=== PATIENT | male | born 1955 | race Caucasian/White ===

== ENCOUNTER 2020-09-15 09:33 | Emergency (ER) | payer OTHER ==
[~2020-09-15] VITALS: Ht 162.6 cm; Wt 81.2 kg
[2020-09-15 10:01] VITALS: BP 174/99
[2020-09-15] MEDS ORDERED: CETI1TAB7 PO (10:33)
[2020-09-15] MEDS ORDERED: CEPH500C PO (10:33)
[2020-09-15] MEDS ORDERED: CIPR7.5D EACH EAR (10:33)
--- NOTE | 2020-09-15 10:36 | PHYS DOC ---
Past History Past Medical History: Other Additional Past Medical Histor: hernias Past Surgical History: Appendectomy, Other Additional Past Surgical Histo: hernia repair Alcohol Use: None Adult General Chief Complaint Chief Complaint: EARACHE/EAR PAIN HPI HPI Patient is 65-year-old male who presents to the emergency room complaining of left ear pressure and a rash to his chin and the back of his neck. Patient states he first got the rash a year ago and it has been intermittent since then he has been using a cream his primary care doctor gave him which helps but does not resolve the rash. He noticed severe ear pressure when he woke up this morning. For the last couple of days he has felt like the ear is full of water and has had some pain in the ear. He also has been having some eye drainage. He denies any fever, chills, sweats, decreased hearing, decreased vision, cough, shortness of breath, change of taste, change of smell. Review of Systems Review of Systems Complete ROS is negative unless otherwise documented in HPI Allergies Allergies Allergies Coded Allergies Type Severity Reaction Last Updated Verified No Known Drug Allergies 09/15/20 No Physical Exam Physical Exam General: Awake, alert, NAD. Well Nourished, well hydrated. Cooperative HEENT: Atraumatic, EOMI, PERRL, airway patent, moist oral mucosa, left TM with effusion, left canal with erythema and swelling consistent with otitis externa Neck: Supple, trachea midline Respiratory: CTA bilaterally, normal effort, no wheezing/crackles CV: RRR, no murmur, cap refill <2 GI: Soft, nondistended, nontender, no masses MSK: No obvious deformities Skin: Warm, dry, intact face: 2 small crusted circular lesions to the chin with hair loss. Posterior neck 2 small areas of crusted over lesions Neuro: A&O x3, speech NL, sensory and motor grossly intact, no focal deficits Psych: Normal affect, normal mood, not suicidal or homicidal Current Patient Data Vital Signs Vital Signs Date Time Temp Pulse Resp B/P (MAP) Pulse Ox O2 Delivery O2 Flow Rate FiO2 09/15/20 10:01 97.9 95 20 174/99 (124) 95 EKG EKG [] Radiology/Procedures Radiology/Procedures [] Heart Score Risk Factors: Risk Factors: DM, Current or recent (<one month) smoker, HTN, HLP, family history of CAD, obesity. Risk Scores: Risk Factors: DM, Current or recent (<one month) smoker, HTN, HLP, family history of CAD, obesity. Course & Med Decision Making Course & Med Decision Making Pertinent Labs and Imaging studies reviewed. (See chart for details) Patient is a 65-year-old male who presents to the emergency room complaining of ear pain and rash. Rash is consistent with impetigo. It also appears the patient has an otitis media with an otitis externa. We will place him on cephalexin and Ciprodex. We will do Zyrtec to help with the pressure in his ear. Patient's test results and vitals while in the ED were fully reviewed and discussed with the patient. Patient is stable and at this time does not need admission to the hospital. We have discussed strict return precautions and the importance of following up with their Primary Care Physician. Patient stated understanding and was given an opportunity to ask any questions. Patient is in agreement with plan. Dragon Disclaimer Dragon Disclaimer This electronic medical record was generated, in whole or in part, using a voice recognition dictation system. Departure Departure: Impression: Primary Impression: Otitis media Additional Impression: Impetigo Disposition: HOME SELF CARE/HOMELESS Condition: STABLE Referrals: LASHON PIKE MD (PCP) Patient Instructions: Impetigo, Otitis Media, Adult Scripts Ciprofloxacin Hcl/Dexameth (CIPRODEX OTIC SUSPENSION) 7.5 Ml Drops.susp 4 DROP EACH EAR BID for otitis externa, #7.5 ML Prov: LIN ALVAREZ MD 09/15/20 Cetirizine Hcl/Pseudoephedrine (ZYRTEC-D TABLET) 1 Each Tab.er.12h 1 TAB PO BID for ear pain, #20 TAB Prov: LIN ALVAREZ MD 09/15/20 Cephalexin (CEPHALEXIN) 500 Mg Capsule 1 CAP PO TID for infx, #30 CAP Prov: LIN ALVAREZ MD 09/15/20 Problem Qualifiers LIN ALVAREZ MD Sep 15, 2020 10:36
== END 2020-09-15 10:52 | disposition home or self-care (01) ==
LOC: ER 09:33
DX: H66.92 Otitis media, unspecified, left ear (principal); L01.00 Impetigo, unspecified
CPT/HCPCS: 99283

== ENCOUNTER 2021-05-27 12:31 | Emergency (ER) | payer OTHER ==
[~2021-05-27] VITALS: Ht 162.6 cm; Wt 81.2 kg
[~2021-05-27 12:31] MED LIST: CEPH500C PO; CETI1TAB7 PO; CIPR7.5D EACH EAR
--- NOTE | 2021-05-27 13:28 | PHYS DOC ---
Past History Past Medical History: Other Additional Past Medical Histor: hernias Past Surgical History: Appendectomy, Other Additional Past Surgical Histo: hernia repair Alcohol Use: None General Adult EDM: Chief Complaint: SHORTNESS OF BREATH HPI: HPI: 65-year-old male presents with shortness of breath. He has been having increased shortness of breath and cough with phlegm for the last 2 days. Denies chest pain or diaphoresis. Patient has a history of undiagnosed skin disorder and no other significant medical findings. He has been a smoker for many years. He quit for 15 years. No diagnosis of COPD. He is not vaccinated against COVID-19. He denies fever or chills. He has no other complaints this time. Review of Systems: Review of Systems: Constitutional: Denies fever or chills Eyes: Denies change in visual acuity HENT: Denies nasal congestion or sore throat Respiratory: Denies cough or shortness of breath Cardiovascular: Denies chest pain or edema GI: Denies abdominal pain, nausea, vomiting, bloody stools or diarrhea : Denies dysuria Musculoskeletal: Denies back pain or joint pain Integument: Denies rash Neurologic: Denies headache, focal weakness or sensory changes Endocrine: Denies polyuria or polydipsia Lymphatic: Denies swollen glands Psychiatric: Denies depression or anxiety Allergies: Allergies: Allergies Coded Allergies Type Severity Reaction Last Updated Verified No Known Drug Allergies 09/15/20 No Physical Exam: PE: Constitutional: Well developed, well nourished, no acute distress, non-toxic appearance. [] HENT: Normocephalic, atraumatic, bilateral external ears normal, oropharynx moist, no oral exudates, nose normal. [] Eyes: PERRLA, EOMI, conjunctiva normal, no discharge. [] Neck: Normal range of motion, no tenderness, supple, no stridor. [] Cardiovascular:Heart rate regular rhythm, no murmur [] Lungs & Thorax: Bilateral breath sounds clear to auscultation [] Abdomen: Bowel sounds normal, soft, no tenderness, no masses, no pulsatile masses. [] Skin: Warm, dry, no erythema, no rash. [] Back: No tenderness, no CVA tenderness. [] Extremities: No tenderness, no cyanosis, no clubbing, ROM intact, no edema. [] Neurologic: Alert and oriented X 3, normal motor function, normal sensory function, no focal deficits noted. [] Psychologic: Affect normal, judgement normal, mood normal. [] Current Patient Data: Vital Signs: Vital Signs Date Time Temp Pulse Resp B/P (MAP) Pulse Ox O2 Delivery O2 Flow Rate FiO2 05/27/21 12:36 98.4 18 18 165/94 (117) 96 Room Air EKG: EKG: Sinus rhythm, rate 77, normal axis, no ST elevation or depression. [] Radiology/Procedures: Radiology/Procedures: [] Impressions: Study: XR CHEST 1V Indication: Shortness of breath. Comparison: 08/25/2014 Findings: No confluent airspace infiltrate. No pleural effusion or pneumothorax. Cardiomediastinal silhouette and geri. Chronic ossific fragment adjacent to the right humeral head on a background of arthrosis to fully characterized on this exam. Impression: No acute radiographic abnormality of the chest. Electronically signed by: BRYSON MAXWELL MD (05/27/2021 1:57 PM) [facility] DICTATED AND SIGNED BY: BRYSON MAXWELL MD DATE: 05/27/21 1355 CC: SAIRA NICOLE DO; LASHON PIKE MD ~MTH0 0 Heart Score: C/O Chest Pain: N/A Risk Factors: Risk Factors: DM, Current or recent (<one month) smoker, HTN, HLP, family history of CAD, obesity. Risk Scores: Score 0 - 3: 2.5% MACE over next 6 weeks - Discharge Home Score 4 - 6: 20.3% MACE over next 6 weeks - Admit for Clinical Observation Score 7 - 10: 72.7% MACE over next 6 weeks - Early Invasive Strategies Course & Med Decision Making: Course & Med Decision Making Pertinent Labs and Imaging studies reviewed. (See chart for details) The patient's EKG is unremarkable. His chest x-ray is negative for acute findings. This is likely a COPD exacerbation though the patient does not have an official diagnosis. I will treat him with 125 Solu-Medrol in the ER and 3 more days of prednisone at home. We did test him for COVID-19 results pending. He is stable for discharge at this time. [] Dragon Disclaimer: Dragon Disclaimer: This electronic medical record was generated, in whole or in part, using a voice recognition dictation system. Departure Departure: Impression: Primary Impression: COPD exacerbation Disposition: HOME / SELF CARE / HOMELESS Condition: STABLE Referrals: LASHON PIKE MD (PCP) Patient Instructions: Chronic Obstructive Pulmonary Disease Exacerbation, [id number] Scripts Prednisone (PREDNISONE) 50 Mg Tablet 1 TAB PO DAILY for COPD for 3 Days, #3 TAB Prov: SAIRA NICOLE DO 05/27/21 SAIRA NICOLE DO May 27, 2021 13:28
--- NOTE | 2021-05-27 14:00 | RAD ---
Study: XR CHEST 1V Indication: Shortness of breath. Comparison: 08/25/2014 Findings: No confluent airspace infiltrate. No pleural effusion or pneumothorax. Cardiomediastinal silhouette a nd geri. Chronic ossific fragment adjacent to the right humeral head on a background of arthrosis to fully luciana racterized on this exam. Impression: No acute radiographic abnormality of the chest. Electronically signed by: BRYSON MAXWELL MD (05/27/2021 1:57 PM) [facility]
[2021-05-27 14:05] LABS: BASO # 0.1 x10^3/uL (0.0-0.2); BASO % 1 % (0-3); EOS # 0.2 x10^3/uL (0.0-0.7); EOS % 2 % (0-3); HEMATOCRIT 42.1 % (39.0-53.0); HEMOGLOBIN 14.4 g/dL (13.0-17.5); LYMPH # 2.1 x10^3/uL (1.0-4.8); LYMPH % 16 % (24-48); MEAN CORPUSCULAR HEMOGLOBIN 31 pg (25-35); MEAN CORPUSCULAR HGB CONC 34 g/dL (31-37); MEAN CORPUSCULAR VOLUME 91 fL (79-100); MONO # 0.9 x10^3/uL (0.0-1.1); MONO % 7 % (0-9); NEUT # 9.6 x10^3uL (1.8-7.7); NEUT % 74 % (31-73); PLATELET COUNT 330 x10^3/uL (140-400); RED BLOOD COUNT 4.61 x10^6/uL (4.30-5.70); RED CELL DISTRIBUTION WIDTH 13.1 % (11.5-14.5); WHITE BLOOD COUNT 12.9 x10^3/uL (4.0-11.0)
[2021-05-27] MEDS ORDERED: PRED50TA PO (14:07)
[2021-05-27] MEDS ORDERED: methylPREDNISolone SOD SUCC PF 125 MG/2 ML VIAL. IV ONE (14:15)
[2021-05-27 14:22] VITALS: BP 133/78
[2021-05-27 14:27] LABS: POTASSIUM ISTAT 3.6 mmol/L (3.5-5.0)
[2021-05-27 14:28] LABS: HEMOGLOBIN ISTAT 14.6 gm/dL
[2021-05-27 15:27] LABS: ALBUMIN 3.7 g/dL (3.4-5.0); TOTAL BILIRUBIN 0.7 mg/dL (0.2-1.0); TOTAL PROTEIN 8.3 g/dL (6.4-8.2)
[2021-05-27 15:58] LABS: DIRECT BILIRUBIN 0.2 mg/dL (0.0-0.2)
--- NOTE | 2021-05-27 20:26 | EKG ---
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
== END 2021-05-27 14:33 | disposition home or self-care (01) ==
LOC: ER 12:31
DX: J44.1 Chronic obstructive pulmonary disease with (acute) exacerbation (principal)
CPT/HCPCS: 36415; 71045; 80047; 80076; 84484; 85025; 93005; 96374; 99285; J2930

== ENCOUNTER 2021-07-14 06:16 | Emergency (ER) | payer OTHER ==
[~2021-07-14] VITALS: Ht 162.6 cm; Wt 83.3 kg
[~2021-07-14 06:16] MED LIST changes: +PRED50TA PO
--- NOTE | 2021-07-14 06:27 | PHYS DOC ---
Past History Past Medical History: Other Additional Past Medical Histor: hernias Past Surgical History: Appendectomy, Other Additional Past Surgical Histo: hernia repair Smoking: Cigarettes Alcohol Use: None Drug Use: None Adult General HPI HPI Patient is a 66-year-old male presenting via EMS for nausea and vomit. This is an acute issue. States he has had generalized URI symptoms for several days and started developing nausea yesterday evening. On waking this morning, patient started feeling more nauseous than usual having several episodes of nonbloody nonbilious emesis. He has had nonspecific chills and has been diaphoretic since onset. States turning head, changes of position and p.o. intake makes worse, nothing known makes better. Timing of symptoms has been constant since waking up this morning prompting him to call EMS for transport. On arrival, patient was found to be hemodynamically stable with an unremarkable EKG and abpyb-tl-yemb glucose. Patient was given 4 mg IV Zofran and transported to our facility. On arrival, patient remains diaphoretic with ongoing nausea and had x1 episode of nonbloody nonbilious emesis on arrival. Denies having any known/diagnosed medical conditions and takes no medications on a daily basis. Smokes cigarettes daily but otherwise no alcohol or illicit drug use. He has been at baseline health recently with no major changes or exposures. He admits he is unvaccinated against COVID-19 Review of Systems Review of Systems Fourteen body systems of review of systems have been reviewed. See HPI for pertinent positives and negative responses, other pool all other systems are negative, non-pertinent or non-contributory Allergies Allergies Allergies Coded Allergies Type Severity Reaction Last Updated Verified No Known Drug Allergies 09/15/20 No Physical Exam Physical Exam Constitutional: Appears older than stated age, disheveled and unhygienic in appearance, no acute distress, non-toxic appearance. HENT: Normocephalic, atraumatic, bilateral external ears normal, bilateral tympanic membranes noninfectious without any concerning findings, oropharynx dry, no oral exudates, external nose normal with anterior rhinorrhea present, there is postnasal drip with bilateral boggy nasal turbinates. Forehead is diaphoretic Eyes: PERRLA, EOMI, conjunctiva normal, no discharge. Neck: Normal range of motion, no tenderness, supple, no stridor. Cardiovascular: Heart rate regular, sinus rhythm, no murmurs rubs or gallops Lungs & Thorax: Bilateral breath sounds clear to auscultation Abdomen: Bowel sounds normal, soft, no tenderness, no masses, no pulsatile masses. Nonsurgical abdomen, no peritoneal signs Skin: Warm, dry, no erythema, no rash. Back: No tenderness, no CVA tenderness. Extremities: No tenderness, no cyanosis, no clubbing, ROM intact, no edema. Neurologic: Alert and oriented X 3, cranial nerves II through XII intact, normal motor & sensory function, no focal deficits noted. Psychologic: Anxious affect and mood Current Patient Data Vital Signs Vital Signs Date Time Temp Pulse Resp B/P (MAP) Pulse Ox O2 Delivery O2 Flow Rate FiO2 07/14/21 06:40 98.5 80 24 146/81 (102) 95 Room Air Vital Signs Date Time Temp Pulse Resp B/P (MAP) Pulse Ox O2 Delivery O2 Flow Rate FiO2 07/14/21 06:40 98.5 80 24 146/81 (102) 95 Room Air Lab Results Laboratory Tests Test 07/14/21 06:25 White Blood Count 13.9 x10^3/uL Red Blood Count 4.50 x10^6/uL Hemoglobin 14.0 g/dL Hematocrit 41.9 % Mean Corpuscular Volume 93 fL Mean Corpuscular Hemoglobin 31 pg Mean Corpuscular Hemoglobin Concent 34 g/dL Red Cell Distribution Width 13.3 % Platelet Count 333 x10^3/uL Neutrophils (%) (Auto) 45 % Lymphocytes (%) (Auto) 42 % Monocytes (%) (Auto) 9 % Eosinophils (%) (Auto) 3 % Basophils (%) (Auto) 1 % Neutrophils # (Auto) 6.3 x10^3uL Lymphocytes # (Auto) 5.9 x10^3/uL Monocytes # (Auto) 1.2 x10^3/uL Eosinophils # (Auto) 0.4 x10^3/uL Basophils # (Auto) 0.1 x10^3/uL Sodium Level 141 mmol/L Potassium Level 3.9 mmol/L Chloride Level 104 mmol/L Carbon Dioxide Level 21 mmol/L Anion Gap 16 Blood Urea Nitrogen 17 mg/dL Creatinine 1.4 mg/dL Estimated GFR (Cockcroft-Gault) 50.9 BUN/Creatinine Ratio 12 Glucose Level 194 mg/dL Calcium Level 9.6 mg/dL Total Bilirubin 0.3 mg/dL Aspartate Amino Transf (AST/SGOT) 17 U/L Alanine Aminotransferase (ALT/SGPT) 27 U/L Alkaline Phosphatase 93 U/L Creatine Kinase 70 U/L Troponin I High Sensitivity 5 ng/L Total Protein 7.1 g/dL Albumin 3.7 g/dL Albumin/Globulin Ratio 1.1 Lipase 421 U/L Ethyl Alcohol Level < 10 mg/dL Current Medications Medications (Trade) Dose Ordered Sig/Rafael Route PRN Reason Start Time Stop Time Status Last Admin Dose Admin Sodium Chloride 1,000 ml @ 1,000 mls/hr Q1H IV 07/14/21 06:30 07/14/21 07:29 DC 07/14/21 06:30 Ondansetron HCl (Zofran) 4 mg 1X ONCE IVP 07/14/21 06:45 07/14/21 06:46 DC 07/14/21 06:39 Ondansetron HCl (Zofran) 4 mg STK-MED ONCE .ROUTE 07/14/21 06:34 07/14/21 06:35 DC Meclizine HCl (Antivert) 25 mg 1X ONCE PO 07/14/21 07:30 07/14/21 07:31 DC Metoclopramide HCl (Reglan Vial) 10 mg 1X ONCE IVP 07/14/21 07:30 07/14/21 07:38 DC 07/14/21 07:30 EKG EKG EKG ordered and interpreted by myself at 0625 hrs. is sinus rhythm at 70 bpm, unremarkable intervals, no axis deviation, no acute ischemic findings, no STEMI Radiology/Procedures Radiology/Procedures AP chest x-ray HISTORY: Nausea and vomiting. COMPARISON: Chest x-ray August 2020 FINDINGS: The heart size is normal. The mediastinal silhouette is normal. No pneumothorax, pulmonary opacities or pleural effusions. Bones are unremarkable. IMPRESSION: No acute process evident. Electronically signed by: Xander Potter MD (07/14/2021 7:05 AM) [facility] ////////////////////// CT Head W/O Contrast: History: Reason: DIZZINESS, VOMITING / Spl. Instructions: / History: Comparison: none Axial images were obtained without contrast. The henriquez and white matter appears normal and symmetrical for the patients age. There is no mass effect, extraaxial fluid collections or hydrocephalus. There is no gross bleed. There is no focal loss of henriquez-white matter distinction to suggest acute ischemia, i.e. stroke. Impression: No acute findings. Heart Score C/O Chest Pain: No HEART Score for Chest Pain: HEART Score for Chest Pain Response (Comments) Value History Slighlty/Non-Suspicious 0 ECG Normal 0 Age >45 - < 65 1 Risk Factors 1 or 2 Risk Factors 1 Troponin < Normal Limit 0 Total 2 Risk Factors: Risk Factors: DM, Current or recent (<one month) smoker, HTN, HLP, family history of CAD, obesity. Risk Scores: Risk Factors: DM, Current or recent (<one month) smoker, HTN, HLP, family history of CAD, obesity. Course & Med Decision Making Course & Med Decision Making ABCs unremarkable HPI physical exam and comprehensive ER work-up nonconcerning for any emergent or surgical issues Nausea and vomit improved with provided IV fluid and antiemetics Dizziness improved with administered meclizine Patient having URI symptoms, he is unvaccinated and decision was made to swab for COVID-19 with PCR results pending I requested urine from patient to rule out any infection and to evaluate potential drug use but patient deferred As such patient feeling better, dizziness improved as are his symptoms of nausea and vomit. He is aware this might be an acute presentation more concerning pathology such as ACS, pneumonia or other potentially life or limb threatening condition Joint decision made to discharge home with PCP follow-up Fritz Disclaimer Fritz Disclaimer This electronic medical record was generated, in whole or in part, using a voice recognition dictation system. Departure Departure: Impression: Primary Impression: Nausea and vomiting Additional Impressions: Dizziness Person under investigation for COVID-19 Disposition: HOME / SELF CARE / HOMELESS Condition: IMPROVED Referrals: LASHON PIKE MD (PCP) Additional Instructions: You were seen for dizziness. Your laboratory analysis here was normal that included blood, EKG, chest x-ray and CT head analysis. It is unclear what caused your symptoms but your initial evaluation did not show any concerning symptoms or features. This could be something called vertigo, and/or labrynthitis which should improve with time. Take the prescriptions provided as directed to help with symptoms. We also swabbed you for COVID-19 given your respiratory symptoms and the fact that you are not vaccinated, you should self quarantine immediately and continue providing supportive care practices to yourself until notified of your PCR result. Return to the ED immediately if you develop worsening symptoms, chest pain, shortness of breath, numbness, tingling, weakness, vision change, or any other new or concerning symptoms. You should contact your primary care physician first thing Thursday morning to review ER visit today and need for close outpatient follow-up when safe to do so Scripts Meclizine Hcl (MECLIZINE HCL) 25 Mg Tablet 1 TAB PO TID for dizziness, #15 TAB Prov: KATHRYN GARCIA DO 07/14/21 Metoclopramide Hcl (REGLAN) 10 Mg Tablet 1 TAB PO TID for nausea, #30 TAB 0 Refills before food and bedtime Prov: KATHRYN GARCIA DO 07/14/21 Problem Qualifiers KATHRYN GARCIA DO Jul 14, 2021 06:27
[2021-07-14] MEDS ORDERED: IV NORMAL SALINE 1,000ML 1,000 ML IV SCH (06:30)
[2021-07-14] MEDS ORDERED: ONDANSETRON PF 4 MG/2 ML VIAL. ONE (06:34)
[2021-07-14 06:40] VITALS: BP 146/81
--- NOTE | 2021-07-14 06:40 | EKG ---
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
[2021-07-14] MEDS ORDERED: ONDANSETRON PF 4 MG/2 ML VIAL. IVP ONE (06:45)
[2021-07-14 06:49] LABS: BASO # 0.1 x10^3/uL (0.0-0.2); BASO % 1 % (0-3); EOS # 0.4 x10^3/uL (0.0-0.7); EOS % 3 % (0-3); HEMATOCRIT 41.9 % (39.0-53.0); LYMPH # 5.9 x10^3/uL (1.0-4.8); LYMPH % 42 % (24-48); MEAN CORPUSCULAR HEMOGLOBIN 31 pg (25-35); MEAN CORPUSCULAR HGB CONC 34 g/dL (31-37); MEAN CORPUSCULAR VOLUME 93 fL (79-100); MONO # 1.2 x10^3/uL (0.0-1.1); MONO % 9 % (0-9); NEUT # 6.3 x10^3uL (1.8-7.7); NEUT % 45 % (31-73); PLATELET COUNT 333 x10^3/uL (140-400); RED CELL DISTRIBUTION WIDTH 13.3 % (11.5-14.5); WHITE BLOOD COUNT 13.9 x10^3/uL (4.0-11.0)
--- NOTE | 2021-07-14 07:07 | RAD ---
AP chest x-ray HISTORY: Nausea and vomiting. COMPARISON: Chest x-ray August 2020 FINDINGS: The heart size is normal. The mediastinal silhouette is normal. No pneumothorax, pulmonary opacities or pleural effusions. Bones are unremarkable. IMPRESSION: No acute process evident. Electronically signed by: Xander Potter MD (07/14/2021 7:05 AM) [facility]
[2021-07-14 07:27] LABS: CALCIUM 9.6 mg/dL (8.5-10.1); CREATININE 1.4 mg/dL (0.7-1.3); GFR 50.9; POTASSIUM 3.9 mmol/L (3.5-5.1)
[2021-07-14] MEDS ORDERED: METOCLOPRAMIDE HCL 10 MG/2 ML VIAL. IVP ONE (07:30)
[2021-07-14] MEDS ORDERED: MECLIZINE 12.5 MG TABLET. PO ONE (07:30)
[2021-07-14 07:32] LABS: ALBUMIN 3.7 g/dL (3.4-5.0); ALBUMIN/GLOBULIN RATIO 1.1 (1.0-1.7); TOTAL BILIRUBIN 0.3 mg/dL (0.2-1.0); TOTAL PROTEIN 7.1 g/dL (6.4-8.2)
--- NOTE | 2021-07-14 08:11 | RAD ---
CT Head W/O Contrast: History: Reason: DIZZINESS, VOMITING / Spl. Instructions: / History: Comparison: none Axial images were obtained without contrast. The henriquez and white matter appears normal and symmetrical for the patients age. There is no mass effe ct, extraaxial fluid collections or hydrocephalus. There is no gross bleed. There is no focal loss of henriquez-white matter distinction to suggest acute ischemia, i.e. stroke. Impression: No acute findings. RS Compliance Statement: One or more of the following individualized dose reduction techniques were utilized for this examinat ion: 1. Automated exposure control 2. Adjustment of the mA and/or kV according to patient size 3. Use of iterative reconstruction technique Electronically signed by: Kingsley Lucero III, MD (07/14/2021 8:09 AM) [facility]
[2021-07-14] MEDS ORDERED: MECL-75 PO (08:24)
[2021-07-14] MEDS ORDERED: METO10TA81 PO (08:24)
[2021-07-14 08:47] LABS: INFLUENZA A PATIENT NEGATIVE (NEGATIVE); INFLUENZA B PATIENT NEGATIVE (NEGATIVE)
== END 2021-07-14 08:44 | disposition home or self-care (01) ==
LOC: ER 06:16
DX: R11.2 Nausea with vomiting, unspecified (principal); R42 Dizziness and giddiness; F17.210 Nicotine dependence, cigarettes, uncomplicated; Z20.822 Contact with and (suspected) exposure to COVID-19; Z90.89 Acquired absence of other organs
CPT/HCPCS: 36415; 70450; 71045; 80053; 82550; 83690; 84484; 85025; 87426; 87804; 93005; 96361; 96374; 96375; 99285; C9803; G0480; J2405; J2765; J7030; U0003